=== PATIENT | female | born 1965 | race American Indian/Alaskan Native ===

== ENCOUNTER 2018-11-12 03:33 | Emergency (ER) | payer OTHER, BC ==
[2018-11-12 03:49] VITALS: BP 158/98
[2018-11-12] MEDS ORDERED: IBUPROFEN PO ONE (07:49)
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
== END 2018-11-12 10:04 | disposition home or self-care (01) ==
LOC: ED 03:33
DX: S29.012A Strain of muscle and tendon of back wall of thorax, initial encounter (principal); Z90.710 Acquired absence of both cervix and uterus; V89.2XXA Person injured in unspecified motor-vehicle accident, traffic, initial encounter; Y93.89 Activity, other specified; Y92.89 Other specified places as the place of occurrence of the external cause; Y99.8 Other external cause status
CPT/HCPCS: 72040; 72070; 99283